=== PATIENT | male | born 1950 | race Caucasian/White ===

== ENCOUNTER → 2024-04-01 09:52 | Day surgery (SDC) | payer MEDICARE, SELFPAY ==
[2024-04-01 10:42] LABS: Hematocrit 38.8 % (39.0-52.0); Hemoglobin 12.7 g/dL (13.0-18.0); Mean Corp Hgb Conc. 32.7 g/dL (33.0-37.0); Mean Corpuscular Volume 103.7 fL (80.0-94.0); Mean Platelet Volume 9.1 fL (7.4-10.4); Platelet Count 213 10^3/uL (130-400); Red Blood Cell Count 3.74 10^6/uL (4.70-6.10); Red Cell Dist. Width 13.1 % (11.5-14.5); White Blood Cell Count 6.1 10^3/uL (4.8-10.8)
[2024-04-01 11:04] LABS: Blood Urea Nitrogen 32 mg/dl (9-20); Calcium 9.5 mg/dl (8.4-10.2); Carbon Dioxide 26 mmol/L (22-30); Chloride 104 mmol/L (98-107); Glucose 97 mg/dl (70-99); Potassium 5.2 mmol/L (3.5-5.1); Sodium 140 mmol/L (135-145)
== END ==
LOC: SDSPAT 09:52
PROVIDERS: ATTENDING PHYSICIAN Specialist
DX: Z01.812 Encounter for preprocedural laboratory examination (principal)
CPT/HCPCS: 85027; 36415; 80048

== ENCOUNTER 2024-04-08 06:28 | Day surgery (SDC) | payer MEDICARE, SELFPAY ==
[2024-04-01 10:18] VITALS: BMI 30.1
[2024-04-08] VITALS (15 sets, daily range): BP systolic 142–186; BP diastolic 61–103; BMI 30.1
[2024-04-08] MEDS: CYSVIEW KIT 100 MG INTRAVES (11:02)
[2024-04-08 11:45] LABS: Urine Albumin 1+ (Neg - Trace); Urine Bilirubin Negative (Negative); Urine Character Clear (Clear); Urine Color Yellow; Urine Glucose Negative (Negative); Urine Ketone Negative (Negative); Urine Leukocyte Trace (Negative); Urine Nitrite Negative (Negative); Urine Occult Blood 3+ (Negative); Urine Specific Gravity 1.025 (<1.030); Urine Urobilinogen Negative (Neg - 1+)
--- NOTE | 2024-04-08 12:01 | PTCARENOTE ---
Patient did not tolerate the moncada insertion well. Patient was extremely nervous anticipating the catheter. When inserting it patient was writhing in the bed and extremely tense. Patient stated that the procedure was too long but the entire [place]
took approximately 2 minutes to insert moncada and inject medication. Moncada immediately removed after inserting in and infusing the medication. Will monitor patient.
[2024-04-08 12:46] LABS: Urine Bacteria Few (Negative); Urine Red Blood Cell 26-30 /HPF (0-2); Urine Urothelial Cell 0-2 /LPF (FEW); Urine White Cell 16-20 /HPF (0-5)
--- NOTE | 2024-04-08 14:16 | SUR.OPER ---
Patient waited several hours to go to the OR. Called the OR front office specialist to inquire how long it would be. Patient updated and also offered warm blankets. Will monitor patient.
[2024-04-08] MEDS: DETROL LA 4 MG PO (16:01)
[2024-04-08] MEDS: Pyridium 200 MG PO (16:01)
[2024-04-08] MEDS: DILAUDID 0.25 MG IV (16:02)
[2024-04-08] MEDS: SYRINGE NON-PUMP 50 MG IRRIG ×2 (16:04→16:05)
[2024-04-08] MEDS: SYRINGE NON-PUMP 50 ML IRRIG ×2 (16:04→16:05)
[2024-04-08] MEDS: TORADOL 10 MG IV (16:23)
[2024-04-08] MEDS: VALIUM INJECTION 2.5 MG IV (16:25)
--- NOTE | 2024-04-08 16:50 | SUR.PHASEI ---
patient in pacu post op TURBT - c/o pressure on admission, restless and agitated, CBI infusing and outflow is pink tinged- medicated with dilaudid, pyridium and detrol as ordered. Dr Guillen at bedside, will return when gemcitibine is available.
1605 - gemcitibine instilled, patient calling out with pain, holding breath and dropping sats, BP up. Dr Guillen here, toradol and valium 5mg ordered. With 2.5mg of Valium given - patient falling asleep and obstructing airway, holding on
further dose of valium and Dr Guillen called and order changed.
[2024-04-08] MEDS: ZOFRAN 4 MG IV (17:18)
[2024-04-08] MEDS: VENTOLIN NEBULES 2.5 MG INH (17:47)
--- NOTE | 2024-04-08 18:29 | SUR.PHASEI ---
1800 - patient encouraged throughout stay to deep breathe, stir up - using IS, elevated HOB and arms elevated on pillows. Dr Castaneda updated on sats, okay for discharge though sats fluctuate btwn 80- 95, sometimes dip to 75. order for nebulizer
obtained and given with improvement of sats. Patient admits to SOB at home using albuterol [id number] most days. Lungs are clear. decreased at bases. Encouraged to sleep in recliner and use IS at home. Encouraged to call pulmonary Doctor and
advise of sats. Patient agrees to same
== END 2024-04-08 19:09 | disposition home or self-care (01) ==
LOC: SDS 06:28
PROVIDERS: ATTENDING PHYSICIAN Specialist
DX: C67.9 Malignant neoplasm of bladder, unspecified (principal); C77.9 Secondary and unspecified malignant neoplasm of lymph node, unspecified
CPT/HCPCS: 52240; 52354; 88305; 88307; 88332; 81003; 81015; 87086; 88331; 88341; 88342; 94640; A9589

== ENCOUNTER → 2024-06-17 12:50 | Outpatient (REF) | payer MEDICARE, SELFPAY ==
[2024-06-17 13:17] VITALS: BP 131/73; BP_SYST 63
== END ==
LOC: RADI 12:50
PROVIDERS: ATTENDING PHYSICIAN Internal Medicine Hematology & Oncology; OTHER PHYSICIAN Radiology Radiation Oncology
DX: R59.0 Localized enlarged lymph nodes (principal); C67.0 Malignant neoplasm of trigone of bladder
CPT/HCPCS: 88173; 88305; 38505; 76942; 88342

== ENCOUNTER → 2024-07-07 14:28 | Outpatient (REF) | payer MEDICARE, SELFPAY ==
[2024-07-07 14:35] LABS: % Basophils 0.2 % (0-2); % Eosinophils 2.5 % (0-6); % Immature Granulocytes 0.2 % (0-0.5); % Lymphocytes 14.8 % (20.5-51.1); % Monocytes 9.1 % (1.7-9.3); % Neutrophils 73.2 % (42.2-75.2); Absolute Eosinophils 0.2 10^3/uL (0-0.7); Absolute Lymphocytes 1.4 10^3/uL (1.2-3.4); Absolute Monocytes 0.8 10^3/uL (0.1-0.6); Absolute Neutrophils 6.7 10^3/uL (1.4-6.5); Mean Corp Hgb Conc. 33.3 g/dL (33.0-37.0); Mean Corpuscular Hgb 34.7 pg (27.0-31.0); Mean Platelet Volume 9.3 fL (7.4-10.4); Platelet Count 236 10^3/uL (130-400); Red Blood Cell Count 3.46 10^6/uL (4.70-6.10); Red Cell Dist. Width 13.1 % (11.5-14.5); White Blood Cell Count 9.2 10^3/uL (4.8-10.8)
[2024-07-07 15:31] LABS: ALT (SGPT) 15 U/L (0-50); AST (SGOT) 18 U/L (17-59); Albumin 3.9 g/dl (3.5-5.0); Alkaline Phosphatase 75 U/L (38-126); Blood Urea Nitrogen 29 mg/dl (9-20); Calcium 9.4 mg/dl (8.4-10.2); Carbon Dioxide 26 mmol/L (22-30); Chloride 104 mmol/L (98-107); Glucose 117 mg/dl (70-99); Potassium 4.5 mmol/L (3.5-5.1); Sodium 138 mmol/L (135-145); Total Bilirubin 0.5 mg/dl (0.2-1.3); Total Protein 6.5 g/dl (6.3-8.2); eGFR 32.42
== END ==
LOC: OIDL 14:28
PROVIDERS: ATTENDING PHYSICIAN Internal Medicine Hematology & Oncology
DX: C67.0 Malignant neoplasm of trigone of bladder (principal)
CPT/HCPCS: 80053; 85025

== ENCOUNTER → 2024-07-14 13:16 | Outpatient (REF) | payer MEDICARE, SELFPAY ==
[2024-07-14 13:48] LABS: % Basophils 0.2 % (0-2); % Eosinophils 2.7 % (0-6); % Immature Granulocytes 0.4 % (0-0.5); % Lymphocytes 21.8 % (20.5-51.1); % Monocytes 2.9 % (1.7-9.3); Absolute Eosinophils 0.1 10^3/uL (0-0.7); Absolute Lymphocytes 1.1 10^3/uL (1.2-3.4); Absolute Monocytes 0.1 10^3/uL (0.1-0.6); Absolute Neutrophils 3.5 10^3/uL (1.4-6.5); Hematocrit 35.6 % (39.0-52.0); Hemoglobin 11.4 g/dL (13.0-18.0); Mean Corpuscular Hgb 33.6 pg (27.0-31.0); Mean Platelet Volume 9.3 fL (7.4-10.4); Nucleated Red Blood Cells % 0 % (-); Platelet Count 207 10^3/uL (130-400); Red Blood Cell Count 3.39 10^6/uL (4.70-6.10); Red Cell Dist. Width 12.8 % (11.5-14.5); White Blood Cell Count 4.8 10^3/uL (4.8-10.8)
[2024-07-14 13:54] LABS: ALT (SGPT) 17 U/L (0-50); AST (SGOT) 20 U/L (17-59); Albumin 3.7 g/dl (3.5-5.0); Alkaline Phosphatase 64 U/L (38-126); Blood Urea Nitrogen 28 mg/dl (9-20); Calcium 9.8 mg/dl (8.4-10.2); Carbon Dioxide 29 mmol/L (22-30); Chloride 102 mmol/L (98-107); Glucose 108 mg/dl (70-99); Potassium 4.4 mmol/L (3.5-5.1); Sodium 137 mmol/L (135-145); Total Bilirubin 0.6 mg/dl (0.2-1.3); Total Protein 6.5 g/dl (6.3-8.2); eGFR 32.42
== END ==
LOC: OIDL 13:16
PROVIDERS: ATTENDING PHYSICIAN Internal Medicine Hematology & Oncology
DX: C67.0 Malignant neoplasm of trigone of bladder (principal)
CPT/HCPCS: 80053; 85025

== ENCOUNTER → 2024-07-21 13:53 | Outpatient (REF) | payer MEDICARE, SELFPAY ==
[2024-07-21 14:47] LABS: Hematocrit 31.8 % (39.0-52.0); Hemoglobin 10.6 g/dL (13.0-18.0); Mean Corp Hgb Conc. 33.3 g/dL (33.0-37.0); Mean Corpuscular Hgb 34.5 pg (27.0-31.0); Mean Corpuscular Volume 103.6 fL (80.0-94.0); Mean Platelet Volume 9.3 fL (7.4-10.4); Platelet Count 99 10^3/uL (130-400); Red Blood Cell Count 3.07 10^6/uL (4.70-6.10); Red Cell Dist. Width 12.6 % (11.5-14.5); White Blood Cell Count 3.9 10^3/uL (4.8-10.8)
[2024-07-21 14:48] LABS: ALT (SGPT) 21 U/L (0-50); AST (SGOT) 19 U/L (17-59); Albumin 3.9 g/dl (3.5-5.0); Alkaline Phosphatase 62 U/L (38-126); Blood Urea Nitrogen 29 mg/dl (9-20); Calcium 9.4 mg/dl (8.4-10.2); Carbon Dioxide 27 mmol/L (22-30); Chloride 103 mmol/L (98-107); Glucose 91 mg/dl (70-99); Potassium 4.7 mmol/L (3.5-5.1); Sodium 138 mmol/L (135-145); Total Bilirubin 0.6 mg/dl (0.2-1.3); Total Protein 6.7 g/dl (6.3-8.2); eGFR 30.66
[2024-07-21 15:03] LABS: % Eosinophils 3.8 % (0-6); % Immature Granulocytes 0.5 % (0-0.5); % Lymphocytes 23.1 % (20.5-51.1); % Monocytes 1.5 % (1.7-9.3); % Neutrophils 71.1 % (42.2-75.2); Absolute Eosinophils 0.2 10^3/uL (0-0.7); Absolute Lymphocytes 0.9 10^3/uL (1.2-3.4); Absolute Monocytes 0.1 10^3/uL (0.1-0.6); Absolute Neutrophils 2.8 10^3/uL (1.4-6.5); Nucleated Red Blood Cells % 0 % (-)
== END ==
LOC: OIDL 13:53
PROVIDERS: ATTENDING PHYSICIAN Internal Medicine Hematology & Oncology
DX: C67.0 Malignant neoplasm of trigone of bladder (principal)
CPT/HCPCS: 36415; 80053; 85025

== ENCOUNTER → 2024-07-28 13:43 | Outpatient (REF) | payer MEDICARE, SELFPAY ==
[2024-07-28 13:59] LABS: % Basophils 0.2 % (0-2); % Eosinophils 1.1 % (0-6); % Immature Granulocytes 0.2 % (0-0.5); % Lymphocytes 20.7 % (20.5-51.1); % Monocytes 11.6 % (1.7-9.3); % Neutrophils 66.2 % (42.2-75.2); Absolute Eosinophils 0.1 10^3/uL (0-0.7); Absolute Lymphocytes 0.9 10^3/uL (1.2-3.4); Absolute Monocytes 0.5 10^3/uL (0.1-0.6); Hematocrit 31.4 % (39.0-52.0); Hemoglobin 10.7 g/dL (13.0-18.0); Mean Corp Hgb Conc. 34.1 g/dL (33.0-37.0); Mean Corpuscular Hgb 35.2 pg (27.0-31.0); Mean Corpuscular Volume 103.3 fL (80.0-94.0); Mean Platelet Volume 8.9 fL (7.4-10.4); Platelet Count 174 10^3/uL (130-400); Red Blood Cell Count 3.04 10^6/uL (4.70-6.10); White Blood Cell Count 4.5 10^3/uL (4.8-10.8)
[2024-07-28 14:33] LABS: ALT (SGPT) 26 U/L (0-50); AST (SGOT) 22 U/L (17-59); Albumin 4.4 g/dl (3.5-5.0); Alkaline Phosphatase 70 U/L (38-126); Blood Urea Nitrogen 30 mg/dl (9-20); Calcium 9.5 mg/dl (8.4-10.2); Carbon Dioxide 27 mmol/L (22-30); Chloride 103 mmol/L (98-107); Glucose 115 mg/dl (70-99); Potassium 4.8 mmol/L (3.5-5.1); Sodium 140 mmol/L (135-145); Total Bilirubin 0.7 mg/dl (0.2-1.3); eGFR 34.38
== END ==
LOC: OIDL 13:43
PROVIDERS: ATTENDING PHYSICIAN Internal Medicine Hematology & Oncology
DX: C67.0 Malignant neoplasm of trigone of bladder (principal)
CPT/HCPCS: 36415; 80053; 85025

== ENCOUNTER 2024-08-04 13:59 | Outpatient (RCR) | payer MEDICARE, SELFPAY ==
[2024-08-04 14:24] LABS: % Basophils 0.6 % (0-2); % Eosinophils 2.2 % (0-6); % Immature Granulocytes 0.3 % (0-0.5); % Lymphocytes 19.9 % (20.5-51.1); % Monocytes 5.5 % (1.7-9.3); % Neutrophils 71.5 % (42.2-75.2); Absolute Eosinophils 0.1 10^3/uL (0-0.7); Absolute Lymphocytes 0.7 10^3/uL (1.2-3.4); Absolute Monocytes 0.2 10^3/uL (0.1-0.6); Absolute Neutrophils 2.6 10^3/uL (1.4-6.5); Hemoglobin 9.9 g/dL (13.0-18.0); Mean Corp Hgb Conc. 34.1 g/dL (33.0-37.0); Mean Corpuscular Hgb 35.7 pg (27.0-31.0); Mean Corpuscular Volume 104.7 fL (80.0-94.0); Mean Platelet Volume 8.8 fL (7.4-10.4); Platelet Count 293 10^3/uL (130-400); Red Blood Cell Count 2.77 10^6/uL (4.70-6.10); Red Cell Dist. Width 14.1 % (11.5-14.5); White Blood Cell Count 3.6 10^3/uL (4.8-10.8)
[2024-08-04 15:36] LABS: ALT (SGPT) 16 U/L (0-50); AST (SGOT) 19 U/L (17-59); Albumin 4.1 g/dl (3.5-5.0); Alkaline Phosphatase 74 U/L (38-126); Blood Urea Nitrogen 24 mg/dl (9-20); Calcium 9.3 mg/dl (8.4-10.2); Carbon Dioxide 24 mmol/L (22-30); Chloride 105 mmol/L (98-107); Glucose 109 mg/dl (70-99); Potassium 4.3 mmol/L (3.5-5.1); Sodium 138 mmol/L (135-145); Total Bilirubin 0.7 mg/dl (0.2-1.3); Total Protein 6.5 g/dl (6.3-8.2); eGFR 34.38
== END 2024-08-04 23:59 | disposition home or self-care (01) ==
LOC: OID 13:59
PROVIDERS: ATTENDING PHYSICIAN Internal Medicine Hematology & Oncology
DX: C67.0 Malignant neoplasm of trigone of bladder (principal)
CPT/HCPCS: 36415; 80053; 85025

== ENCOUNTER 2024-08-08 15:23 | Emergency (ER) | payer MEDICARE, SELFPAY ==
[2024-08-08 15:26] VITALS: BP 152/80
[2024-08-08] MEDS: NSS 1000 IV (16:00)
--- NOTE | 2024-08-08 16:01 | ED.GENMED ---
History of Present Illness
<Ernesto Tanner Jr., PA-C - Last Filed: 08/09/24 16:50>
General
Chief Complaint: Abdominal Symptoms
Source: patient
Exam Limitations: none
Time Seen by Provider: 08/08/24 15:36
Nursing documentation reviewed up to this point in time: agreed with
History of Present Illness
History of Present Illness:
74-year-old male with past with history of AAA hypertension hyperlipidemia bladder cancer just finishing chemo and radiation last week presenting to the emergency department today with concerns of left lower quadrant abdominal pain progressing over
the past 10 days or so. Has had intermittent bowel changes of loose and hardened stool has felt generalized weakness and fatigue as well. Denies fevers nausea vomiting or chest pain
Past History
<Ernesto Tanner Jr., PA-C - Last Filed: 08/09/24 16:50>
Past History
ED Past Medical History: Hypercholesterolemia
ED Past Surgical History: None
Social History
Tobacco: Smoker
Alcohol: Former
Drug: None
Personal:
Living: with family
Employment: Not employed
Review of Systems
<Ernesto Tanner Jr., PA-C - Last Filed: 08/09/24 16:50>
Review of Systems
Allergies reviewed?: Yes
All Other Systems: ROS reviewed and negative except as documented in HPI and ROS
Phy Exam
<Ernesto Tanner Jr., PA-C - Last Filed: 08/09/24 16:50>
Physical Exam
Physical Exam:
GENERAL: Alert , in no apparent distress
EYE: pupils equal and reactive
NECK: Supple, no significant adenopathy.
ENT: o/p clr, mmm.
CARDIAC: Regular rate and rhythm .
LUNGS: Clear breath sounds bilaterally, no acute respiratory distress, no wheezes/rales/rhonchi
ABDOMEN: TTP to left lower quadrant otherwise soft abdomen
NEUROLOGICAL: Alert and oriented, no focal neuro deficits
SKIN: Warm and dry, skin intact.
MUSCULOSKELETAL: No edema, well perfused.
PSYCH: Normal and appropriate interaction.
Course
<Ernesto Tanner Jr., PA-C - Last Filed: 08/09/24 16:50>
Orders/Labs/Results
Orders:
Orders
08/08/24 15:47
0.9% Sodium Chloride 1000 ml [Nss] 1,000 ml IV BOLUS
08/08/24 15:48
CT Abd/Pel (IV only)-DH only Urgent
Comment:
Reason For Exam: Patientllq pain hx of bladder CA
08/08/24 16:00
Complete Blood Count/With Diff Urgent
Comprehensive Metabolic Panel Urgent
08/08/24 18:57
Amoxicillin 875 mg/Clav 125 mg [Augmentin 875 mg/125 mg] 1 tablet PO NOW STA
Abnormal Lab Results
08/08/24
16:00
RBC 2.77 L 10^6/uL
(4.70-6.10)
Hgb 9.8 L g/dL
(13.0-18.0)
Hct 28.4 L %
(39.0-52.0)
MCV 102.5 H fL
(80.0-94.0)
MCH 35.4 H pg
(27.0-31.0)
RDW 14.9 H %
(11.5-14.5)
Absolute Lymphs (auto) 0.5 L 10^3/uL
(1.2-3.4)
Neutrophils % 83.0 H %
(42.2-75.2)
Lymphocytes % 7.1 L %
(20.5-51.1)
BUN 26 H mg/dl
(9-20)
Creatinine 2.1 H mg/dL
(0.7-1.3)
08/08/24 16:00
08/08/24 16:00
Vital Signs
Initial and Last Documented VS:
Initial Vital Signs
Temp Pulse Resp BP Pulse Ox
98.4 F 72 18 152/80 95
08/08/24 15:26 08/08/24 15:26 08/08/24 15:26 08/08/24 15:26 08/08/24 15:26
Last Documented Vital Signs
Temp Pulse Resp BP Pulse Ox
98.4 F 77 16 134/69 95
08/08/24 15:26 08/08/24 19:10 08/08/24 19:10 08/08/24 19:10 08/08/24 19:10
<Glenis Reyes PA-C - Last Filed: 08/08/24 20:37>
Orders/Labs/Results
Orders:
Orders
08/08/24 15:47
0.9% Sodium Chloride 1000 ml [Nss] 1,000 ml IV BOLUS
08/08/24 15:48
CT Abd/Pel (IV only)-[facility] only Urgent
Comment:
Reason For Exam: Patientllq pain hx of bladder CA
08/08/24 16:00
Complete Blood Count/With Diff Urgent
Comprehensive Metabolic Panel Urgent
08/08/24 18:57
Amoxicillin 875 mg/Clav 125 mg [Augmentin 875 mg/125 mg] 1 tablet PO NOW STA
Abnormal Lab Results
08/08/24
16:00
RBC 2.77 L 10^6/uL
(4.70-6.10)
Hgb 9.8 L g/dL
(13.0-18.0)
Hct 28.4 L %
(39.0-52.0)
MCV 102.5 H fL
(80.0-94.0)
MCH 35.4 H pg
(27.0-31.0)
RDW 14.9 H %
(11.5-14.5)
Absolute Lymphs (auto) 0.5 L 10^3/uL
(1.2-3.4)
Neutrophils % 83.0 H %
(42.2-75.2)
Lymphocytes % 7.1 L %
(20.5-51.1)
BUN 26 H mg/dl
(9-20)
Creatinine 2.1 H mg/dL
(0.7-1.3)
08/08/24 16:00
08/08/24 16:00
Vital Signs
Initial and Last Documented VS:
Initial Vital Signs
Temp Pulse Resp BP Pulse Ox
98.4 F 72 18 152/80 95
08/08/24 15:26 08/08/24 15:26 08/08/24 15:26 08/08/24 15:26 08/08/24 15:26
Last Documented Vital Signs
Temp Pulse Resp BP Pulse Ox
98.4 F 77 16 134/69 95
08/08/24 15:26 08/08/24 19:10 08/08/24 19:10 08/08/24 19:10 08/08/24 19:10
<Ernesto Tanner Jr., PA-C - Last Filed: 08/09/24 16:50>
MDM/Problems Addressed
MDM/Problems Addressed:
74-year-old male presenting to the emergency department today with concerns of left lower quadrant abdominal pain. Reproducible here to left lower quadrant. Some intermittent bowel changes. On arrival vital signs are normal patient in no general
distress. Plan for CT scan for further assessment care transition pending CT scan.
<Glenis Reyes PA-C - Last Filed: 08/08/24 20:37>
*Critical Care Note
Total Time (30-74mins, 75-104mins- exclusive of procedures): Not Applicable
<Glenis Reyes PA-C - Last Filed: 08/08/24 20:37>
Update Note
Update Note:
I assumed care of patient pending CT scan results. CT reveals acute sigmoid diverticulitis. No evidence of abscess or perforation. There is also asymmetric wall thickening of the left posterolateral urinary bladder which is consistent with his
known history of bladder cancer. This appears to be partially obstructing the distal left ureter and causing moderate upstream hydronephrosis. Renal function at baseline and he seems to be asymptomatic from this perspective. Findings discussed
with patient and he was given a copy of his CT scan report. Patient eager to go home and there is no indication for hospitalization at this time. He was started on a course of Augmentin. Advised clear liquid diet until pain improves. He was
instructed to follow-up closely with his PCP and strict ED return precautions discussed. Patient discharged in stable condition.
ED Attending Note
<Ernesto Tanner Jr., PA-C - Last Filed: 08/09/24 16:50>
-
Portions of this chart may have been created with voice recognition software.� Occasional wrong word or��sound alike� substitutions may have occurred due to the inherent limitations of voice recognition software.
Discharge Plan
Departure
Patient Disposition: Home (Routine Discharge)
Date of Disposition: 08/08/24
Time of Disposition: 18:57
Patient with high blood pressure during this ER visit?: Yes
Discharge Problem:
Acute diverticulitis
Instructions: Clear Liquid Diet, Diverticulitis - Discharge instructions
Prescriptions:
New
amoxicillin-pot clavulanate 875-125 mg tablet
1 tab PO BID Qty: 19 0RF
No Action
atorvastatin 40 mg Tablet
40 mg PO HS
carvedilol 12.5 mg Tablet
12.5 mg PO BID
clopidogrel [Plavix] 75 mg Tablet
75 mg PO DAILY
amlodipine 5 mg Tablet
5 mg PO DAILY
albuterol sulfate 90 mcg/actuation Hfa Aerosol Inhaler
2 puff INHALATION Q6H PRN (Reason: sob)
Incruse Ellipta 62.5 mcg/actuation Blister With Device
1 inh INHALATION DAILY
Vitamin B-12
1 cap PO DAILY
Vitamin D3
1 cap PO DAILY
Referrals:
Amy Mosley MD, Resident [Family Provider] -
Activity Restrictions/Additional Instructions:
Take antibiotics as prescribed. Eat a clear liquid diet until pain improves. Take Tylenol as needed for pain.
Please follow-up with your family doctor next week. Return to the ER with any worsening symptoms, fevers, chills, severe pain, or if you do not improve in 3-4 days.
Interventions
Interventions:
*Risk Screen - Suicide Last Done: 08/08/24 15:29
*General Assessment Last Done: 08/08/24 15:26
*Neglect/Abuse Screening Last Done: 08/08/24 15:26
*ED- Fall Risk Assessment Last Done: 08/08/24 19:10
*ED COVID-19 Vaccine History Last Done: 08/08/24 19:25
*Nursing Disposition Last Done: 08/08/24 19:25
DW-Sapsde-Ynisyoirdr Assessment Last Done: 08/08/24 19:10
Discharge Date and Time
Discharge Date/Time: 08/08/24 19:25
Print Language: INDONESIAN
[2024-08-08 16:16] LABS: Hematocrit 28.4 % (39.0-52.0); Hemoglobin 9.8 g/dL (13.0-18.0); Mean Corp Hgb Conc. 34.5 g/dL (33.0-37.0); Mean Corpuscular Hgb 35.4 pg (27.0-31.0); Mean Corpuscular Volume 102.5 fL (80.0-94.0); Mean Platelet Volume 8.9 fL (7.4-10.4); Platelet Count 216 10^3/uL (130-400); Red Blood Cell Count 2.77 10^6/uL (4.70-6.10); Red Cell Dist. Width 14.9 % (11.5-14.5); White Blood Cell Count 6.5 10^3/uL (4.8-10.8)
[2024-08-08 16:30] LABS: ALT (SGPT) 14 U/L (0-50); AST (SGOT) 17 U/L (17-59); Albumin 4.2 g/dl (3.5-5.0); Alkaline Phosphatase 86 U/L (38-126); Blood Urea Nitrogen 26 mg/dl (9-20); Calcium 9.4 mg/dl (8.4-10.2); Carbon Dioxide 24 mmol/L (22-30); Chloride 104 mmol/L (98-107); Glucose 99 mg/dl (70-99); Potassium 4.2 mmol/L (3.5-5.1); Sodium 136 mmol/L (135-145); Total Bilirubin 0.7 mg/dl (0.2-1.3); Total Protein 6.8 g/dl (6.3-8.2); eGFR 32.42
[2024-08-08 17:38] LABS: % Basophils 0.2 % (0-2); % Eosinophils 0.9 % (0-6); % Immature Granulocytes 0.3 % (0-0.5); % Lymphocytes 7.1 % (20.5-51.1); % Monocytes 8.5 % (1.7-9.3); Absolute Eosinophils 0.1 10^3/uL (0-0.7); Absolute Lymphocytes 0.5 10^3/uL (1.2-3.4); Absolute Monocytes 0.6 10^3/uL (0.1-0.6); Absolute Neutrophils 5.4 10^3/uL (1.4-6.5); Nucleated Red Blood Cells % 0.8 % (-)
[2024-08-08 18:05] VITALS: BP 154/72
[2024-08-08] MEDS: AUGMENTIN 875 MG/125 MG 1 TABLET PO (19:06)
[2024-08-08 19:10] VITALS: BP 134/69
== END 2024-08-08 19:25 | disposition home or self-care (01) ==
LOC: EMR 15:23
PROVIDERS: Physician Assistant; EMERGENCY PHYSICIAN Emergency Medicine
DX: K57.32 Diverticulitis of large intestine without perforation or abscess without bleeding (principal); E78.00 Pure hypercholesterolemia, unspecified; I10 Essential (primary) hypertension; F17.200 Nicotine dependence, unspecified, uncomplicated; C67.9 Malignant neoplasm of bladder, unspecified; Z92.3 Personal history of irradiation
CPT/HCPCS: 99284; 96360; 74177; 80053; 85025; Q9967

== ENCOUNTER → 2025-01-28 10:13 | Outpatient (REF) | payer MEDICARE, SELFPAY | LOC: HWRAD 10:13 | PROVIDERS: ATTENDING PHYSICIAN Radiology Radiation Oncology | DX: C67.2 Malignant neoplasm of lateral wall of bladder (principal) | CPT/HCPCS: 71250; 74176 ==

== ENCOUNTER → 2025-05-19 13:38 | Outpatient (REF) | payer MEDICARE, SELFPAY | LOC: CLAB 13:38 | PROVIDERS: ATTENDING PHYSICIAN Specialist | DX: C67.0 Malignant neoplasm of trigone of bladder (principal) | CPT/HCPCS: 88112 ==